=== PATIENT | female | born 1995 | race Two or more races ===

== ENCOUNTER → 2022-05-01 | Outpatient (CLI) | payer OTHER ==
[2022-05-01 15:51] LABS: HEMATOCRIT 34.4 % (36.0-47.0); HEMOGLOBIN 11.8 g/dl (12.0-15.5); MEAN CORPUSCULAR HEMOGLOBIN 30.6 pg (27.0-33.0); MEAN CORPUSCULAR HGB CONC 34.3 g/dl (32.0-36.5); MEAN CORPUSCULAR VOLUME 89.1 fl (80.0-96.0); PLATELET COUNT, AUTOMATED 287 10^3/uL (150-450); RED BLOOD COUNT 3.86 10^6/uL (4.00-5.40); WHITE BLOOD COUNT 7.5 10^3/uL (4.0-10.0)
[2022-05-01 17:41] LABS: HEPATITIS C VIRUS ABY INDEX < 0.0 INDEX (<0.8); HIV 1&2 SCREEN CENTAUR NEGATIVE (NEGATIVE)
== END ==
LOC: M PLALAB 12:57
PROVIDERS: ATTEND Obstetrics & Gynecology
DX: Z34.90 Encounter for supervision of normal pregnancy, unspecified, unspecified trimester (principal); Z3A.00 Weeks of gestation of pregnancy not specified

== ENCOUNTER → 2022-05-18 | Outpatient (CLI) | payer OTHER ==
[2022-05-18 20:28] LABS: GC DNA AMPLIFICATION NEGATIVE (NEGATIVE)
== END ==
LOC: M PLALAB 14:11
PROVIDERS: ATTEND Obstetrics & Gynecology
DX: Z34.81 Encounter for supervision of other normal pregnancy, first trimester (principal); Z3A.10 10 weeks gestation of pregnancy

== ENCOUNTER → 2022-07-06 | Outpatient (CLI) | payer OTHER | LOC: M WHC 11:28 | PROVIDERS: ATTEND Advanced Practice Midwife | DX: Z34.02 Encounter for supervision of normal first pregnancy, second trimester (principal); Z3A.20 20 weeks gestation of pregnancy ==

== ENCOUNTER → 2022-08-03 | Outpatient (CLI) | payer OTHER ==
[2022-08-03 14:23] LABS: HEMATOCRIT 33.7 % (36.0-47.0); HEMOGLOBIN 11.5 g/dl (12.0-15.5); MEAN CORPUSCULAR HEMOGLOBIN 31.3 pg (27.0-33.0); MEAN CORPUSCULAR HGB CONC 34.1 g/dl (32.0-36.5); MEAN CORPUSCULAR VOLUME 91.8 fl (80.0-96.0); PLATELET COUNT, AUTOMATED 230 10^3/uL (150-450); RED BLOOD COUNT 3.67 10^6/uL (4.00-5.40); WHITE BLOOD COUNT 7.4 10^3/uL (4.0-10.0)
== END ==
LOC: M PLALAB 09:12
PROVIDERS: ATTEND Obstetrics & Gynecology
DX: Z34.92 Encounter for supervision of normal pregnancy, unspecified, second trimester (principal)

== ENCOUNTER → 2022-08-03 | Outpatient (CLI) | payer OTHER | LOC: M WHC 08:40 | PROVIDERS: ATTEND Obstetrics & Gynecology | DX: Z34.92 Encounter for supervision of normal pregnancy, unspecified, second trimester (principal); Z3A.24 24 weeks gestation of pregnancy ==

== ENCOUNTER → 2022-08-24 | Outpatient (CLI) | payer OTHER | LOC: M LAB 07:33 | PROVIDERS: ATTEND Obstetrics & Gynecology | DX: R73.02 Impaired glucose tolerance (oral) (principal) ==

== ENCOUNTER → 2022-10-08 | Outpatient (CLI) | payer OTHER | LOC: M WHC 06:55 | PROVIDERS: ATTEND Obstetrics & Gynecology | DX: O26.843 Uterine size-date discrepancy, third trimester (principal); Z3A.33 33 weeks gestation of pregnancy ==

== ENCOUNTER → 2022-10-25 | Outpatient (REF) | payer OTHER | LOC: M PLALAB 11:40 | PROVIDERS: ATTEND Advanced Practice Midwife | DX: Z34.83 Encounter for supervision of other normal pregnancy, third trimester (principal) ==

== ENCOUNTER 2022-11-22 03:06 | Outpatient (CLI) | payer OTHER ==
[~2022-11-22] VITALS: Ht 160 cm; Wt 74.0 kg
[2022-11-22 03:23] VITALS: BP 137/77
[2022-11-22] MEDS ORDERED: PRENMIS3 PO (03:28)
[2022-11-22 04:05] VITALS: BP 124/89
[2022-11-22 05:34] VITALS: BP 123/60
[2022-11-23] MEDS ORDERED: ACET-683 PO (02:42)
== END 2022-11-22 06:20 | disposition home or self-care (01) ==
LOC: M LDO 03:06
PROVIDERS: ATTEND Specialist
DX: O47.1 False labor at or after 37 completed weeks of gestation (principal); Z3A.39 39 weeks gestation of pregnancy; Z88.0 Allergy status to penicillin; Z88.1 Allergy status to other antibiotic agents
CPT/HCPCS: 59025; G0463

== ENCOUNTER 2022-11-23 02:23 | Inpatient (IN) | payer OTHER ==
[2022-11-23] VITALS (68 sets, daily range): BP systolic 98–214; BP diastolic 52–131
[~2022-11-23] VITALS: Ht 160 cm; Wt 73.6 kg
[~2022-11-23 02:23] MED LIST: PRENMIS3 PO
[2022-11-23] MEDS ORDERED: ACET-683 PO (02:42)
[2022-11-23] MEDS ORDERED: HOME MED LIST COMPLETE! XX SCH (02:45)
[2022-11-23] MEDS ORDERED: OXYTOCIN DRIP 30 UNITS in IV 1 EA IV SCH (03:45)
[2022-11-23] MEDS ORDERED: METHYLERGONOVINE MALEATE 0.2MG/ML 1ML VIAL IM PRN (03:45)
[2022-11-23] MEDS ORDERED: OXYTOCIN DRIP 30 UNITS in IV 1 EA IV PRN ×4 (03:45)
[2022-11-23] MEDS ORDERED: TRANEXAMIC ACID INJection 1,000 MG in NS 100 ML IV PRN (03:45)
[2022-11-23] MEDS ORDERED: LACTATED RINGER'S 1000 ML IV PRN (03:45)
[2022-11-23] MEDS ORDERED: CARBOPROST TROMETHAMINE 250 MCG/ML AMP IM PRN (03:45)
[2022-11-23] MEDS: LR 1,000 ML IV SCH ×3 (04:22→17:37)
[2022-11-23 04:23] LABS: HEMATOCRIT 34.2 % (36.0-47.0); HEMOGLOBIN 11.5 g/dl (12.0-15.5); MEAN CORPUSCULAR HEMOGLOBIN 29.9 pg (27.0-33.0); MEAN CORPUSCULAR HGB CONC 33.6 g/dl (32.0-36.5); MEAN CORPUSCULAR VOLUME 89.1 fl (80.0-96.0); PLATELET COUNT, AUTOMATED 213 10^3/uL (150-450); RED BLOOD COUNT 3.84 10^6/uL (4.00-5.40); WHITE BLOOD COUNT 9.1 10^3/uL (4.0-10.0)
[2022-11-23] MEDS ORDERED: diphenhydrAMINE 50MG/ML VIAL IV PRN (06:20)
[2022-11-23] MEDS ORDERED: EPIDURAL/PCA KEYS XX PRN (06:20)
[2022-11-23] MEDS ORDERED: NALOXONE INJ 0.4MG/1ML VIAL IV PRN (06:20)
[2022-11-23] MEDS ORDERED: LR 500 ML IV PRN (06:20)
[2022-11-23] MEDS ORDERED: ePHEDrine SULFATE 25 MG/5 ML(5MG/ML) SYRINGE IVP PRN (06:20)
[2022-11-23] MEDS: FENTANYL/ROPIVACAINE/NACL BAG 100 ML EPIDURAL SCH ×2 (06:58→15:05)
[2022-11-23] MEDS: ONDANSETRON 4MG 2ML VIAL IV PRN ×4 (08:26→21:42)
[2022-11-23 22:04] LABS: ALKALINE PHOSPHATASE 320 U/L (46-116); ALT/SGPT 10 U/L (7.0-40); AST/SGOT 18 U/L (<34); BILIRUBIN,TOTAL 0.5 MG/DL (0.3-1.2); BLOOD UREA NITROGEN 12 MG/DL (9-23); CALCIUM LEVEL 8.8 MG/DL (8.5-10.1); CARBON DIOXIDE LEVEL 20 MMOL/L (20-31); CHLORIDE LEVEL 109 MMOL/L (98-107); CREATININE FOR GFR 0.61 MG/DL (0.55-1.30); GLOMERULAR FILTRATION RATE > 60.0 (>60); GLUCOSE, FASTING 84 MG/DL (60-100); POTASSIUM SERUM 4.1 MMOL/L (3.5-5.1); SODIUM LEVEL 137 MMOL/L (136-145); TOTAL PROTEIN 6.3 G/DL (5.7-8.2)
[2022-11-24] VITALS (15 sets, daily range): BP systolic 102–204; BP diastolic 54–130
[2022-11-24] MEDS ORDERED: ceFAZolin SOD 2 GM in IV 1 EA IV ONE ×2
[2022-11-24] MEDS ORDERED: MORPHINE PRES-FREE INJ 10 MG/10 ML VIAL As Ordered ONE (00:30)
[2022-11-24] MEDS ORDERED: ONDANSETRON 4MG 2ML VIAL As Ordered ONE ×2 (00:33→03:04)
[2022-11-24] MEDS ORDERED: ACETAMINOPHEN 1000MG 100ML IV BAG As Ordered ONE (00:33)
[2022-11-24] MEDS ORDERED: KETOROLAC 60MG 2ML VIAL As Ordered ONE (00:33)
[2022-11-24] MEDS ORDERED: OXYTOCIN 30UNITS IN 0.9% NaCl 500ML IV BAG As Ordered ONE (00:34)
[2022-11-24] MEDS ORDERED: BICITRA 30ML SOLN UDC PO ONE (01:00)
[2022-11-24] MEDS ORDERED: **NOTE PATIENT COMMENT** MISC XX SCH (01:05)
[2022-11-24] MEDS ORDERED: METOCLOPRAMIDE INJ 10MG/2ML VIAL IV PRN (01:05)
[2022-11-24] MEDS ORDERED: ONDANSETRON 4MG 2ML VIAL IV PRN (01:05)
[2022-11-24] MEDS ORDERED: NALOXONE INJ 0.4MG/1ML VIAL IV PRN ×2 (01:05)
[2022-11-24] MEDS ORDERED: fentaNYL 100 MCG/2 ML INJECTION IV PRN (01:05)
[2022-11-24] MEDS ORDERED: diphenhydrAMINE 50MG/ML VIAL IV PRN (01:05)
[2022-11-24] MEDS ORDERED: MEPERIDINE 25 MG/ML 1ML VIAL IV PRN (01:05)
[2022-11-24] MEDS ORDERED: PERCOCET 5MG/325MG TAB PO PRN (01:15)
[2022-11-24] MEDS ORDERED: RHOGAM 300MCG (1500IU) INJ IM SCH (01:15)
[2022-11-24] MEDS ORDERED: OXYTOCIN DRIP 30 UNITS in IV 1 EA IV SCH (01:15)
[2022-11-24 01:21] LABS: CORD GAS ABE A -7.9; CORD GAS ABE V -4.4; CORD GAS HCO3 A 18.9 MMOL/L; CORD GAS HCO3 V 20.7 MMOL/L; CORD GAS O2 SAT A 45.6 %; CORD GAS O2 SAT V 62.6 %; CORD GAS PCO2 V 38.8 mmHg; CORD GAS PH A 7.261 UNITS; CORD GAS PH V 7.346 UNITS; CORD GAS PO2 A 21.3 mmHg; CORD GAS PO2 V 25.2 mmHg; CORD GAS TCO2 A 20.2 MMOL/L; CORD GAS TCO2 V 21.9 MMOL/L
[2022-11-24] MEDS ORDERED: SLF 3 ML SYR IV SCH (02:00)
[2022-11-24] MEDS: ONDANSETRON 4MG 2ML VIAL IV PRN ×3 (03:09→14:32)
[2022-11-24] MEDS: KETOROLAC 30 MG/ML 1ML VIAL IV SCH ×3 (07:35→19:00)
[2022-11-24] MEDS: PRENATAL VITAMINS CHEWABLE TABLET PO SCH (08:40)
[2022-11-24] MEDS: DOCUSATE SODIUM 100MG CAPSULE PO SCH ×2 (08:40→22:20)
[2022-11-24] MEDS ORDERED: LACTATED RINGER'S 1000 ML IV ONE (11:50)
[2022-11-24] MEDS: LR 1,000 ML IV SCH ×2 (12:07→19:50)
[2022-11-25 02:00] VITALS: BP 120/67
[2022-11-25] MEDS: IBUPROFEN 800 MG TAB PO SCH ×3 (02:38→19:11)
[2022-11-25 05:47] VITALS: BP 127/70
[2022-11-25] MEDS: SIMETHICONE 80MG CHEW TAB PO PRN (08:09)
[2022-11-25] MEDS: DOCUSATE SODIUM 100MG CAPSULE PO SCH ×2 (08:09→22:57)
[2022-11-25] MEDS: PRENATAL VITAMINS CHEWABLE TABLET PO SCH (08:09)
[2022-11-25 09:16] LABS: HEMATOCRIT 31.2 % (36.0-47.0); HEMOGLOBIN 10.3 g/dl (12.0-15.5); MEAN CORPUSCULAR HEMOGLOBIN 30.2 pg (27.0-33.0); MEAN CORPUSCULAR VOLUME 91.5 fl (80.0-96.0); PLATELET COUNT, AUTOMATED 179 10^3/uL (150-450); RED BLOOD COUNT 3.41 10^6/uL (4.00-5.40); WHITE BLOOD COUNT 13.3 10^3/uL (4.0-10.0)
[2022-11-25 10:00] VITALS: BP 111/60
[2022-11-25 13:57] VITALS: BP 112/57
[2022-11-25 18:00] VITALS: BP 116/58
[2022-11-25 22:00] VITALS: BP_SYST 127; BP_SYST 59; BP_DIAS 59
[2022-11-26 01:55] VITALS: BP 115/61
[2022-11-26] MEDS: SIMETHICONE 80MG CHEW TAB PO PRN (03:48)
[2022-11-26] MEDS: IBUPROFEN 800 MG TAB PO SCH ×2 (03:48→12:27)
[2022-11-26 06:00] VITALS: BP 125/78
[2022-11-26] MEDS: PRENATAL VITAMINS CHEWABLE TABLET PO SCH (08:59)
[2022-11-26] MEDS: DOCUSATE SODIUM 100MG CAPSULE PO SCH (08:59)
[2022-11-26] MEDS ORDERED: MEASLES,MUMPS,RUBELLA VACCINE INJ (MMR-II) SC.IMMUN ONE (09:00)
[2022-11-26] MEDS ORDERED: PERCOCET PO ×3 (10:52→12:24)
[2022-11-26] MEDS ORDERED: IBUP80TA PO (10:52)
[2022-11-26] MEDS ORDERED: COLA100C5 PO (10:52)
== END 2022-11-26 12:55 | disposition home or self-care (01) | DRG 773 ==
LOC: M LDO 02:23 → M LDI 03:41 → M OBS 11-24 02:50
PROVIDERS: ADMIT Obstetrics & Gynecology; ATTEND Obstetrics & Gynecology
PROC: 3E033VJ Introduction of Other Hormone into Peripheral Vein, Percutaneous Approach (ICD-10-PCS; 2022-11-23)
PROC: 10907ZC Drainage of Amniotic Fluid, Therapeutic from Products of Conception, Via Natural or Artificial Opening (ICD-10-PCS; 2022-11-23)
PROC: 10D00Z1 Extraction of Products of Conception, Low, Open Approach (ICD-10-PCS; principal; 2022-11-24 00:15)
DX: O48.0 Post-term pregnancy (principal); Z3A.40 40 weeks gestation of pregnancy; Z37.0 Single live birth; O99.892 Other specified diseases and conditions complicating childbirth; R03.0 Elevated blood-pressure reading, without diagnosis of hypertension; O32.4XX0 Maternal care for high head at term, not applicable or unspecified

== ENCOUNTER → 2022-12-25 | Outpatient (REF) | payer OTHER ==
[~2022-12-25] MED LIST changes: +ACET-683 PO; +COLA100C5 PO; +IBUP80TA PO; +PERCOCET PO
== END ==
LOC: M SFHCWAGY 09:59
PROVIDERS: ATTEND Nurse Practitioner Family
DX: N73.9 Female pelvic inflammatory disease, unspecified (principal)

== ENCOUNTER → 2023-09-27 | Outpatient (CLI) | payer OTHER ==
[2023-09-27 17:48] LABS: HEMOGLOBIN 12.2 g/dl (12.0-15.5); MEAN CORPUSCULAR HGB CONC 34.9 g/dl (32.0-36.5); MEAN CORPUSCULAR VOLUME 88.8 fl (80.0-96.0); PLATELET COUNT, AUTOMATED 269 10^3/uL (150-450); RED BLOOD COUNT 3.94 10^6/uL (4.00-5.40)
[2023-09-27 18:40] LABS: HIV 1&2 SCREEN NEGATIVE (NEGATIVE)
[2023-09-27 18:48] LABS: HEPATITIS C VIRUS ABY INDEX 0.02 INDEX (<0.8)
[2023-09-27 19:23] LABS: GC DNA AMPLIFICATION NEGATIVE (NEGATIVE)
== END ==
LOC: M PLALAB 15:28 → M LAB 15:28
PROVIDERS: ATTEND Advanced Practice Midwife
DX: O34.211 Maternal care for low transverse scar from previous cesarean delivery (principal); Z3A.00 Weeks of gestation of pregnancy not specified

== ENCOUNTER → 2023-11-11 | Outpatient (CLI) | payer OTHER | LOC: M WHC 13:16 | PROVIDERS: ATTEND Advanced Practice Midwife | DX: Z34.92 Encounter for supervision of normal pregnancy, unspecified, second trimester (principal); Z3A.19 19 weeks gestation of pregnancy ==

== ENCOUNTER → 2023-12-05 | Outpatient (CLI) | payer OTHER | LOC: M WHC 13:52 | PROVIDERS: ATTEND Obstetrics & Gynecology | DX: Z36.2 Encounter for other antenatal screening follow-up (principal) ==

== ENCOUNTER 2023-12-23 06:00 | Day surgery (SDC) | payer OTHER ==
[~2023-12-23] VITALS: Ht 160 cm; Wt 68.5 kg
[~2023-12-23 06:00] MED LIST changes: +CHEL100T4 PO; +LIDOCAINE W/EPINEPHRINE 1% 20ML VIAL XX ONE; +MULTTAB20 PO; +SODIUM BICARBONATE 8.4% INJ 50MEQ 50ML VIAL XX ONE
[2023-12-23] MEDS: BACITRACIN OINTMENT 30GM TUBE As Ordered ONE (07:38)
[2023-12-23 07:55] VITALS: BP 120/56; TEMP 97.5; O2SAT 99
== END 2023-12-23 08:08 | disposition home or self-care (01) ==
LOC: M SDC 06:00
PROVIDERS: ATTEND Orthopaedic Surgery Hand Surgery
DX: M65.4 Radial styloid tenosynovitis [de Quervain] (principal); Z33.1 Pregnant state, incidental; Z3A.25 25 weeks gestation of pregnancy; Z88.0 Allergy status to penicillin; Z79.899 Other long term (current) drug therapy

== ENCOUNTER → 2023-12-27 | Outpatient (CLI) | payer OTHER ==
[~2023-12-27] MED LIST changes: -LIDOCAINE W/EPINEPHRINE 1% 20ML VIAL XX ONE; -SODIUM BICARBONATE 8.4% INJ 50MEQ 50ML VIAL XX ONE
[2023-12-27 15:30] LABS: HEMATOCRIT 36.4 % (36.0-47.0); HEMOGLOBIN 12.4 g/dl (12.0-15.5); MEAN CORPUSCULAR HEMOGLOBIN 31.3 pg (27.0-33.0); MEAN CORPUSCULAR HGB CONC 34.1 g/dl (32.0-36.5); MEAN CORPUSCULAR VOLUME 91.9 fl (80.0-96.0); PLATELET COUNT, AUTOMATED 257 10^3/uL (150-450); RED BLOOD COUNT 3.96 10^6/uL (4.00-5.40); WHITE BLOOD COUNT 8.5 10^3/uL (4.0-10.0)
[2023-12-27 16:55] LABS: GC DNA AMPLIFICATION NEGATIVE (NEGATIVE)
== END ==
LOC: M PLALAB 11:52
PROVIDERS: ATTEND Obstetrics & Gynecology
DX: Z98.891 History of uterine scar from previous surgery (principal)

== ENCOUNTER → 2024-01-17 | Outpatient (CLI) | payer OTHER | LOC: M WHC 12:34 | PROVIDERS: ATTEND Obstetrics & Gynecology | DX: Z98.891 History of uterine scar from previous surgery (principal) ==

== ENCOUNTER → 2024-02-14 | Outpatient (CLI) | payer OTHER | LOC: M RAD 14:59 | PROVIDERS: ATTEND Obstetrics & Gynecology | DX: O26.843 Uterine size-date discrepancy, third trimester (principal); Z3A.33 33 weeks gestation of pregnancy ==

== ENCOUNTER → 2024-02-20 | Outpatient (CLI) | payer OTHER | LOC: M WHC 12:30 | PROVIDERS: ATTEND Obstetrics & Gynecology | DX: O36.5993 Maternal care for other known or suspected poor fetal growth, unspecified trimester, fetus 3 (principal); Z3A.33 33 weeks gestation of pregnancy ==

== ENCOUNTER → 2024-02-27 | Outpatient (CLI) | payer OTHER | LOC: M WHC 06:36 | PROVIDERS: ATTEND Obstetrics & Gynecology | DX: O36.5993 Maternal care for other known or suspected poor fetal growth, unspecified trimester, fetus 3 (principal); Z3A.34 34 weeks gestation of pregnancy ==

== ENCOUNTER → 2024-02-27 | Outpatient (CLI) | payer OTHER | LOC: M WHC 07:00 | PROVIDERS: ATTEND Obstetrics & Gynecology | DX: O36.5930 Maternal care for other known or suspected poor fetal growth, third trimester, not applicable or unspecified (principal); Z3A.34 34 weeks gestation of pregnancy ==

== ENCOUNTER → 2024-03-03 | Outpatient (REF) | payer OTHER | LOC: M SFHCWAGY 15:10 | PROVIDERS: ATTEND Obstetrics & Gynecology | DX: Z36.85 Encounter for antenatal screening for Streptococcus B (principal); Z3A.35 35 weeks gestation of pregnancy ==

== ENCOUNTER → 2024-03-05 | Outpatient (CLI) | payer OTHER | LOC: M WHC 10:20 | PROVIDERS: ATTEND Obstetrics & Gynecology | DX: O36.5930 Maternal care for other known or suspected poor fetal growth, third trimester, not applicable or unspecified (principal); Z3A.35 35 weeks gestation of pregnancy ==

== ENCOUNTER → 2024-03-13 | Outpatient (CLI) | payer OTHER | LOC: M WHC 08:46 | PROVIDERS: ATTEND Obstetrics & Gynecology | DX: O36.5993 Maternal care for other known or suspected poor fetal growth, unspecified trimester, fetus 3 (principal); Z3A.37 37 weeks gestation of pregnancy ==

== ENCOUNTER 2024-03-16 11:14 | Inpatient (IN) | payer OTHER ==
[2024-03-16] VITALS (9 sets, daily range): BP systolic 101–131; BP diastolic 54–68; TEMP 97.9; O2SAT 95–98
[~2024-03-16] VITALS: Ht 160 cm; Wt 70.6 kg
[2024-03-16] MEDS: PRENATAL VITAMINS CHEWABLE TABLET PO SCH (09:00)
[2024-03-16] MEDS ORDERED: OXYTOCIN DRIP 30 UNITS in IV 1 EA IV PRN (13:25)
[2024-03-16] MEDS ORDERED: CLINDAMYCIN 900 MG in IV 1 EA IV ONE (13:25)
[2024-03-16] MEDS ORDERED: GENTAMICIN IV ONE (13:25)
[2024-03-16] MEDS ORDERED: OXYTOCIN INJ 10UNITS/ML 1ML VIAL IM PRN (13:25)
[2024-03-16] MEDS ORDERED: FLUID PLACE HOLDER IV ONE (13:25)
[2024-03-16] MEDS: LR 1,000 ML IV SCH ×2 (13:25→15:00)
[2024-03-16] MEDS ORDERED: CARBOPROST TROMETHAMINE 250 MCG/ML AMP IM PRN (13:25)
[2024-03-16] MEDS ORDERED: LIDOCAINE 1% MDV 20ML VIAL INFIL PRN (13:25)
[2024-03-16] MEDS ORDERED: TRANEXAMIC ACID INJection 1,000 MG in NS 100 ML IV PRN (13:25)
[2024-03-16] MEDS ORDERED: METHYLERGONOVINE MALEATE 0.2MG/ML 1ML VIAL IM PRN ×2 (13:25→15:00)
[2024-03-16] MEDS: ceFAZolin SOD 2 GM in IV 1 EA IV ONE (13:45)
[2024-03-16] MEDS: LACTATED RINGER'S 1000 ML IV STA (13:45)
[2024-03-16] MEDS: BICITRA 30ML SOLN UDC PO ONE (13:45)
[2024-03-16] MEDS ORDERED: MORPHINE PRES-FREE INJ 10 MG/10 ML VIAL As Ordered ONE (14:02)
[2024-03-16 14:14] LABS: HEMATOCRIT 35.7 % (36.0-47.0); HEMOGLOBIN 11.9 g/dl (12.0-15.5); MEAN CORPUSCULAR HEMOGLOBIN 30.4 pg (27.0-33.0); MEAN CORPUSCULAR HGB CONC 33.3 g/dl (32.0-36.5); MEAN CORPUSCULAR VOLUME 91.1 fl (80.0-96.0); PLATELET COUNT, AUTOMATED 226 10^3/uL (150-450); RED BLOOD COUNT 3.92 10^6/uL (4.00-5.40); WHITE BLOOD COUNT 8.7 10^3/uL (4.0-10.0)
[2024-03-16] MEDS ORDERED: CALCIUM CARBONATE 500 MG CHEW U/D PO PRN (15:00)
[2024-03-16] MEDS ORDERED: PERCOCET 5MG/325MG TAB PO PRN ×2 (15:00)
[2024-03-16] MEDS ORDERED: ONDANSETRON 4MG 2ML VIAL IV PRN ×2 (15:00→16:05)
[2024-03-16] MEDS ORDERED: RHO(D) IMMUNE GLOBULIN/MALTOSE 500MCG(2500IU)/2.2ML VIAL (WINRHO) IM SCH (15:00)
[2024-03-16] MEDS ORDERED: MOM 30ML SUSPENSION UDC PO PRN (15:00)
[2024-03-16] MEDS ORDERED: ACETAMINOPHEN 1000MG 100ML IV BAG As Ordered ONE (15:07)
[2024-03-16] MEDS ORDERED: PHENYLephrine 500MCG 5ML (100MCG/ML) SYRINGE As Ordered ONE (15:07)
[2024-03-16] MEDS ORDERED: ePHEDrine SULFATE 25 MG/5 ML(5MG/ML) SYRINGE As Ordered ONE (15:07)
[2024-03-16] MEDS ORDERED: OXYTOCIN 30UNITS IN 0.9% NaCl 500ML IV BAG As Ordered ONE (15:15)
[2024-03-16] MEDS ORDERED: ONDANSETRON 4MG 2ML VIAL As Ordered ONE (15:15)
[2024-03-16] MEDS ORDERED: KETOROLAC 60MG 2ML VIAL As Ordered ONE (15:15)
[2024-03-16] MEDS ORDERED: fentaNYL 100 MCG/2 ML INJECTION As Ordered ONE (15:20)
[2024-03-16 15:21] LABS: HEPATITIS C VIRUS ABY INDEX < 0.02 INDEX (<0.8)
[2024-03-16 15:36] LABS: CORD GAS ABE V -3.4; CORD GAS HCO3 V 21.1 MMOL/L; CORD GAS O2 SAT V 88.9 %; CORD GAS PCO2 V 36.9 mmHg; CORD GAS PH V 7.376 UNITS; CORD GAS PO2 V 43.4 mmHg; CORD GAS SBC V 21.5 MMOL/L; CORD GAS TCO2 V 22.3 MMOL/L
[2024-03-16 15:38] LABS: CORD GAS ABE A -3.3; CORD GAS HCO3 A 24.4 MMOL/L; CORD GAS O2 SAT A 39.7 %; CORD GAS PCO2 A 54.2 mmHg; CORD GAS PH A 7.272 UNITS; CORD GAS PO2 A 19.1 mmHg; CORD GAS SBC A 20.3 MMOL/L; CORD GAS TCO2 A 26.1 MMOL/L
[2024-03-16] MEDS ORDERED: HYDROMORPHONE HCL 0.5 MG/ 0.5 ML SYRINGE IV PRN (16:05)
[2024-03-16] MEDS: SLF 3 ML SYR IV SCH (16:05)
[2024-03-16] MEDS ORDERED: **NOTE PATIENT COMMENT** MISC XX SCH (16:05)
[2024-03-16] MEDS ORDERED: diphenhydrAMINE 50MG/ML VIAL IV PRN (16:05)
[2024-03-16] MEDS ORDERED: oxyCODONE 5MG TAB PO PRN (16:05)
[2024-03-16] MEDS ORDERED: NALOXONE INJ 0.4MG/1ML VIAL IV PRN ×2 (16:05)
[2024-03-16] MEDS ORDERED: fentaNYL 100 MCG/2 ML INJECTION IV PRN (16:05)
[2024-03-16] MEDS ORDERED: MEPERIDINE 25 MG/ML 1ML VIAL IV PRN (16:05)
[2024-03-16] MEDS: OXYTOCIN DRIP 30 UNITS in IV 1 EA IV SCH (16:20)
[2024-03-16] MEDS: METOCLOPRAMIDE INJ 10MG/2ML VIAL IV PRN (19:04)
[2024-03-16] MEDS: KETOROLAC 30 MG/ML 1ML VIAL IV SCH (20:51)
[2024-03-16] MEDS: DOCUSATE SODIUM 100MG CAPSULE PO SCH (20:51)
[2024-03-17 02:30] VITALS: BP 91/50; O2SAT 96
[2024-03-17 06:00] VITALS: BP 99/52; O2SAT 96
[2024-03-17 06:41] LABS: MEAN CORPUSCULAR HEMOGLOBIN 30.5 pg (27.0-33.0); MEAN CORPUSCULAR HGB CONC 34.1 g/dl (32.0-36.5); MEAN CORPUSCULAR VOLUME 89.6 fl (80.0-96.0); PLATELET COUNT, AUTOMATED 212 10^3/uL (150-450); RED BLOOD COUNT 3.08 10^6/uL (4.00-5.40); WHITE BLOOD COUNT 11.3 10^3/uL (4.0-10.0)
[2024-03-17 06:43] LABS: HEMOGLOBIN 9.4 g/dl (12.0-15.5)
[2024-03-17 06:44] LABS: HEMATOCRIT 27.6 % (36.0-47.0)
[2024-03-17 10:00] VITALS: BP 105/51; O2SAT 98
[2024-03-17 14:00] VITALS: BP 113/55; O2SAT 97
[2024-03-17] MEDS: IBUPROFEN 800 MG TAB PO SCH (17:37)
[2024-03-17 18:00] VITALS: BP_SYST 120; BP_SYST 125; BP_DIAS 59; BP_DIAS 72; O2SAT 97
[2024-03-17] MEDS ORDERED: ACETAMINOPHEN 500 MG TAB PO SCH (18:00)
[2024-03-17] MEDS ORDERED: IBUPROFEN 600MG TAB PO SCH (18:00)
[2024-03-17] MEDS ORDERED: oxyCODONE 5MG TAB PO PRN ×2 (19:45)
[2024-03-17] MEDS: ACETAMINOPHEN 500 MG TAB PO SCH (20:00)
[2024-03-17] MEDS: SIMETHICONE 80MG CHEW TAB PO PRN (20:01)
[2024-03-17 22:15] VITALS: BP 108/53; O2SAT 97
[2024-03-18] MEDS: IBUPROFEN 600MG TAB PO SCH (01:33)
[2024-03-18 02:05] VITALS: BP 125/59; O2SAT 98
[2024-03-18 05:50] VITALS: BP 113/60; O2SAT 97
[2024-03-18] MEDS: MEASLES,MUMPS,RUBELLA VACCINE INJ (MMR-II) SC.IMMUN ONE (09:00)
[2024-03-18 10:00] VITALS: BP 111/53; O2SAT 99
== END 2024-03-18 12:58 | disposition home or self-care (01) | DRG 785 ==
LOC: M LDO 11:14 → M LDI 13:22 → M OBS 17:35
PROVIDERS: ADMIT Advanced Practice Midwife; ATTEND Advanced Practice Midwife
PROC: 0UB70ZZ Excision of Bilateral Fallopian Tubes, Open Approach (ICD-10-PCS; 2024-03-16)
PROC: 10D00Z1 Extraction of Products of Conception, Low, Open Approach (ICD-10-PCS; principal; 2024-03-16 13:57)
DX: O34.211 Maternal care for low transverse scar from previous cesarean delivery (principal); Z37.0 Single live birth; Z3A.37 37 weeks gestation of pregnancy; Z30.2 Encounter for sterilization

== ENCOUNTER → 2024-03-30 | Outpatient (REF) | payer OTHER | LOC: M SFHCWAGY 15:12 | PROVIDERS: ATTEND Obstetrics & Gynecology | DX: R30.0 Dysuria (principal); N76.0 Acute vaginitis ==

== ENCOUNTER → 2024-04-15 | Outpatient (REF) | payer OTHER | LOC: M PLALAB 14:13 | PROVIDERS: ATTEND Obstetrics & Gynecology | DX: N76.0 Acute vaginitis (principal) ==